=== PATIENT | female | born 1955 | race Caucasian/White ===

== ENCOUNTER 2023-03-31 07:05 | Day surgery (SDC) | payer MEDICARE, OTHER, SELFPAY ==
[2023-03-31] VITALS (11 sets, daily range): BP systolic 82–165; BP diastolic 58–78; BMI 27.1
[2023-03-31] MEDS: TYLENOL 1000 MG PO (11:56)
[2023-03-31] MEDS: NORMOSOL-R 1000 IV (12:13)
--- NOTE | 2023-03-31 12:41 | HP.FOC2 ---
Focused History & Physical
Chief Complaint
HPI:
Chief Complaint: Symptomatic gallstones
HPI / Indication for Planned Procedure: Patient is a 67-year-old female recently referred in outpatient surgical evaluation after emergency department workup for bandlike upper abdominal pain radiating to her back was notable for gallstones. Her
symptoms started following a lasagna dinner with nausea but no vomiting. She has had 1 similar episode like this in the past about 6 years ago. Presents today for scheduled cholecystectomy.
Relevant Past Medical History: Other (Hypothyroid, vertigo, high cholesterol)
Relevant Social History: Tobacco Use
Relevant Family History: Negative
Relevant Past Surgical History: Positive for (Cystoscopy)
Review of Systems
Review of Pertinent Systems: All Systems Negative
Medication
See Medication form for detailed medications: Yes
Medication List (including Herbals & OTC):
zolpidem 5 mg tablet 10 mg PO HSPRN PRN insomnia 10/16/19
ibuprofen 600 mg tablet 600 mg PO QID PRN fever or pain #20 tabs 12/05/22
amitriptyline 10 mg tablet 20 mg PO HS 03/26/23
atorvastatin 10 mg tablet 10 mg PO DAILY 03/26/23
Medications Reviewed: Yes
Allergies and Reactions
Patient has Allergies: No
Noted Allergies and Reactions:
Allergy/AdvReac Type Severity Reaction Status Date / Time
No Known Allergies Allergy Verified 03/31/23 11:42
Pertinent Physical Exam
All Other Systems: Negative
Head/Neck: Normal
Lungs: Normal
Heart: Normal
Abdomen: Normal
Extremities: Normal
Neurological: Normal
Diagnosis / Assessment
67-year-old female with suspected biliary colic presenting today for cholecystectomy
Plan / Procedure
Laparoscopic cholecystectomy with intraoperative cholangiogram
Anesthesia/Sedation to be done by Anesthesia Provider: Yes
--- NOTE | 2023-03-31 13:55 | W.SUR.PREOP ---
Pre-Operative Surgical Note
-
I have examined this patient prior to the performance of the scheduled procedure.
The patient's condition is unchanged from the time of the current History and
Physical and the patient is able to undergo the scheduled procedure.
[2023-03-31] MEDS: ZOFRAN 4 MG IV (15:45)
--- NOTE | 2023-03-31 15:50 | W.IMMPOSTOP ---
Addendum entered and electronically signed by Julius Ayala MD 03/31/23 15:58:
#[id number]
Original Note:
Surgical Immed Post Op Note
-
Primary Surgeon: Lucy
Assisting Surgeon: Orlin CA
Pre-op Diagnosis: Symptomatic Cholelithiasis
Post-op Diagnosis: Symptomatic Cholelithiasis
Procedure Performed: Lap Licha with IOC
Anesthesia Type: GETA + 0.25% Marcaine
Specimen / Cultures: GB
Estimated Blood Loss: 10mL
Complications: none immediate
Operative Findings: GB with stones. normal IOC. cystic duct and artery controlled with clips. no disruption of gallbladder with cholecystectomy.
== END 2023-03-31 17:46 | disposition home or self-care (01) ==
LOC: SDS 07:05
PROVIDERS: ATTENDING PHYSICIAN Surgery
DX: K80.10 Calculus of gallbladder with chronic cholecystitis without obstruction (principal)
CPT/HCPCS: 47563; 88304; 74300; 76000

== ENCOUNTER → 2023-07-28 18:31 | Outpatient (REF) | payer MEDICARE, OTHER, SELFPAY | LOC: PAVMRI 18:31 | PROVIDERS: ATTENDING PHYSICIAN Physical Medicine & Rehabilitation; FAMILY PHYSICIAN Internal Medicine | DX: M54.16 Radiculopathy, lumbar region (principal) | CPT/HCPCS: 72148 ==

== ENCOUNTER → 2023-11-28 14:20 | Outpatient (REF) | payer MEDICARE, OTHER, SELFPAY | LOC: RAD 14:20 | PROVIDERS: ATTENDING PHYSICIAN Internal Medicine; REFERRING PHYSICIAN Physical Medicine & Rehabilitation | DX: R51.9 Headache, unspecified (principal); S09.90XD Unspecified injury of head, subsequent encounter; M25.561 Pain in right knee; M25.562 Pain in left knee | CPT/HCPCS: 70140; 70450; 73560 ==